=== PATIENT | male | born 1955 | race Caucasian/White ===

== ENCOUNTER 2018-03-03 01:47 | Emergency (ER) | payer MEDICAID, MEDICARE ==
[2018-03-03] MEDS ORDERED: KETOROLAC 30 MG/1 ML ONE (02:29)
[2018-03-03] MEDS ORDERED: METHOCARBAMOL 750 MG TABLET ONE (02:29)
[2018-03-03] MEDS ORDERED: METHOCARBAMOL 750 MG TABLET PO ONE (02:30)
[2018-03-03] MEDS ORDERED: KETOROLAC 30 MG/1 ML IM ONE (02:30)
[2018-03-03 03:06] VITALS: BP 148/86
== END 2018-03-03 03:08 | disposition home or self-care (01) ==
LOC: ED 02:02
DX: S29.012A Strain of muscle and tendon of back wall of thorax, initial encounter (principal); I10 Essential (primary) hypertension; V49.49XA Driver injured in collision with other motor vehicles in traffic accident, initial encounter; Y93.89 Activity, other specified; Y92.89 Other specified places as the place of occurrence of the external cause; Y99.8 Other external cause status
CPT/HCPCS: 72072; 96372; 99284; J1885